=== PATIENT | female | born 2000 ===

== ENCOUNTER 2022-07-02 01:31 | Outpatient (CLI) | payer OTHER ==
[~2022-07-02] VITALS: Ht 152.4 cm; Wt 73.0 kg
== END 2022-07-02 10:37 | disposition home or self-care (01) ==
LOC: OBS/DEL 01:31
PROVIDERS: ATTEND Obstetrics & Gynecology
DX: O26.893 Other specified pregnancy related conditions, third trimester (principal); O9A.213 Injury, poisoning and certain other consequences of external causes complicating pregnancy, third trimester; Z3A.32 32 weeks gestation of pregnancy

== ENCOUNTER 2022-08-22 07:15 | Inpatient (IN) | payer OTHER ==
[~2022-08-22] VITALS: Ht 152.4 cm; Wt 77.1 kg
[2022-08-22] MEDS ORDERED: PRENATAL TABLE1 EAC1 (08:54)
== END 2022-08-24 14:22 | disposition home or self-care (01) | DRG 807 ==
LOC: OB/GYN 07:15 → LDR 07:15 → OB/GYN 21:59
PROVIDERS: ADMIT Obstetrics & Gynecology; ATTEND Obstetrics & Gynecology
PROC: 10E0XZZ Delivery of Products of Conception, External Approach (ICD-10-PCS; principal; 2022-08-22)
PROC: 0KQM0ZZ Repair Perineum Muscle, Open Approach (ICD-10-PCS; 2022-08-22)
PROC: 4A1HXCZ Monitoring of Products of Conception, Cardiac Rate, External Approach (ICD-10-PCS; 2022-08-22)
DX: O70.1 Second degree perineal laceration during delivery (principal); Z37.0 Single live birth; O99.824 Streptococcus B carrier state complicating childbirth; Z3A.39 39 weeks gestation of pregnancy; Z20.822 Contact with and (suspected) exposure to COVID-19